=== PATIENT | female | born 1995 | race Caucasian/White ===

== ENCOUNTER 2016-12-09 16:44 | Emergency (ER) | payer MEDICAID ==
[~2016-12-09] VITALS: Ht 157.5 cm; Wt 65.8 kg
[~2016-12-09 16:44] MED LIST: FERR-74 PO; FOLI0.4T2 PO; HYDR-3812 PO; IBUP-1773 PO; PREN-53 PO
--- OUTSIDE RECORDS SUMMARY | 2016-12-09 16:51 | XMS REPORT ---
Author Author MARCELLO CORTES eClinicalWorks Address Unknown Phone Unavailable Care Team Providers Care Gluer Machine Setup Operator Name Role Phone MARCELLO CORTES CP Unavailable Allergies No Known Allergies Problems Problem Type Condition ICD-9 Code Onset Dates Condition Status Problem Depressive disorder, not elsewhere classified 311 Active Problem Supervision of normal first V22.0 Active Problem examination or test, positive result V72.42 Active Problem Epilepsy affecting 649.40 Active Assessment Supervision of normal first V22.0 Active Problem Screening examination for venereal disease V74.5 Active Problem Epilepsy 345.90 Active Medications No Known Medications Procedures Procedure Coding System Code Date Office Visit, Est Pt., Level 2 CPT-4 77981 Dec 24, 2014 URINE-NO MICRO CPT-4 02881 Dec 24, 2014 Vital Signs Date/Time: Dec 24, 2014 Temperature 98.9 F Weight 157.0 lbs Height 63 in BMI 27.811 Index Blood Pressure Diastolic 64 mmHg Blood Pressure Systolic 116 mmHg Cardiac Monitoring Heart Rate 84 bpm BMIPercentile 89.2 % Wt Percentile 85.32 % Results Name Result Date Reference Range Unit Abnormality Flag UA OB DIP (IN HOUSE) Summary Purpose eClinicalWorks Submission
--- OUTSIDE RECORDS SUMMARY | 2016-12-09 16:51 | XMS REPORT ---
Author Author MARCELLO CORTES [employer]Clinical[employer] Address Unknown Phone Unavailable Care Team Providers Care Translator Interpreter Name Role Phone MARCELLO CORTES CP Unavailable Allergies No Known Allergies Problems Problem Type Condition Code Onset Dates Condition Status Problem Encounter for supervision of normal first , third trimester Z34.03 Active Problem Depressive disorder, not elsewhere classified 311 Active Problem Epilepsy, unspecified, not intractable, without status epilepticus G40.909 Active Assessment Encounter for supervision of normal first , third trimester Z34.03 Active Assessment 39 weeks gestation of Z3A.39 Active Medications No Known Medications Procedures Procedure Coding System Code Date Office Visit, Est Pt., Level 2 CPT-4 42219 Feb 04, 2015 URINE-NO MICRO CPT-4 02955 Feb 04, 2015 Vital Signs Date/Time: Feb 04, 2015 Temperature 97.0 F Weight 164.9 lbs Height 63 in BMI 29.211 Index Blood Pressure Diastolic 78 mmHg Blood Pressure Systolic 122 mmHg Cardiac Monitoring Heart Rate 84 bpm BMIPercentile 91.87 % Wt Percentile 89.46 % Results Name Result Date Reference Range Unit Abnormality Flag UA OB DIP (IN HOUSE) Summary Purpose eClinicalWorks Submission
--- OUTSIDE RECORDS SUMMARY | 2016-12-09 16:51 | XMS REPORT ---
Author Author MARCELLO CORTES [facility] eClinicalWorks Address Unknown Phone Unavailable Care Team Providers Care Baggage Security Checker Name Role Phone MARCELLO CORTES Unavailable Allergies No Known Allergies Problems Problem Type Condition ICD-9 Code Onset Dates Condition Status Problem Depressive disorder, not elsewhere classified 311 Active Problem Supervision of normal first V22.0 Active Problem examination or test, positive result V72.42 Active Problem Epilepsy affecting 649.40 Active Assessment Supervision of normal first V22.0 Active Problem Screening examination for venereal disease V74.5 Active Problem Epilepsy 345.90 Active Medications Medication Code System Code Instructions Start Date End Date Status Dosage Folic Acid [facility] [address]-20 1 mg Jun 20, 2014 1 tablet by Oral route 1 time per day Procedures Procedure Coding System Code Date DETECT AGNT MULT, DNA, AMPLI CPT-4 14267 Jan 16, 2015 Office Visit, Est Pt., Level 2 CPT-4 49241 Jan 16, 2015 URINE-NO MICRO CPT-4 02108 Jan 16, 2015 Vital Signs Date/Time: Jan 16, 2015 Temperature 98.4 F Weight 159.3 lbs Height 63 in BMI 28.219 Index Blood Pressure Diastolic 70 mmHg Blood Pressure Systolic 116 mmHg Cardiac Monitoring Heart Rate 84 bpm BMIPercentile 90.06 % Wt Percentile 86.64 % Results No Known Results Summary Purpose eClinicalWorks Submission
--- OUTSIDE RECORDS SUMMARY | 2016-12-09 16:51 | XMS REPORT ---
Author Author MARCELLO CORTES [facility] eClinicalWorks Address Unknown Phone Unavailable Care Team Providers Care Truckman Name Role Phone MARCELLO CORTES CP Unavailable Allergies No Known Allergies Problems Problem Type Condition ICD-9 Code Onset Dates Condition Status Problem Depressive disorder, not elsewhere classified 311 Active Problem Supervision of normal first V22.0 Active Problem examination or test, positive result V72.42 Active Problem Epilepsy affecting 649.40 Active Problem Screening examination for venereal disease V74.5 Active Problem Epilepsy 345.90 Active Medications No Known Medications Results No Known Results Summary Purpose eClinicalWorks Submission
--- OUTSIDE RECORDS SUMMARY | 2016-12-09 16:51 | XMS REPORT ---
Author Author MARCELLO CORTES [facility] eClinicalWorks Address Unknown Phone Unavailable Care Team Providers Care Mica Layer Name Role Phone MARCELLO CORTES Unavailable Allergies No Known Allergies Problems Problem Type Condition Code Onset Dates Condition Status Problem Epilepsy, unspecified, not intractable, without status epilepticus G40.909 Active Medications Medication Code System Code Instructions Start Date End Date Status Dosage Aviane [facility] [address]-80 0.1-20 MG-MCG Orally Once a day Apr 17, 2015 1 tablet Results No Known Results Summary Purpose eClinicalWorks Submission
--- OUTSIDE RECORDS SUMMARY | 2016-12-09 16:51 | XMS REPORT ---
Author Author MARCELLO CORTES eClinicalWorks Address Unknown Phone Unavailable Care Team Providers Care Social Professionals Name Role Phone MARCELLO CORTES CP Unavailable [...] Office Visit, Est Pt., Level 2 CPT-4 55417 Jan 01, 2015 URINE-NO MICRO CPT-4 98980 Jan 01, 2015 Vital Signs Date/Time: Jan 01, 2015 Temperature 97.6 F Weight 156.8 lbs Height 63 in BMI 27.776 Index Blood Pressure Diastolic 68 mmHg Blood Pressure Systolic 108 mmHg Cardiac Monitoring Heart Rate 82 bpm BMIPercentile 89.11 % Wt Percentile 85.19 % Results Name Result Date Reference Range Unit Abnormality Flag UA OB DIP (IN HOUSE) Summary Purpose eClinicalWorks Submission
--- OUTSIDE RECORDS SUMMARY | 2016-12-09 16:52 | XMS REPORT ---
Author Author MARCELLO CORTES Organization eClinicalWorks Address Unknown Phone Unavailable Care Team Providers Care Head Of Conservation Name Role Phone MARCELLO CORTES CP Unavailable Allergies, Adverse Reactions, Alerts Substance Reaction Event Type Zithromax Info Not Available Drug Allergy Codeine Info Not Available Drug Allergy Problems Problem Type Condition Code Onset Dates Condition Status Assessment Routine follow-up Z39.2 Active Problem Epilepsy, unspecified, not intractable, without status epilepticus G40.909 Active Medications Medication Code System Code Instructions Start Date End Date Status Dosage [facility] [address]93 28-0.8 MG Orally not defined Ortho-Cyclen (28) [facility] [address]-72 0.25-35 MG-MCG Orally Once a day Mar 1 tablet Procedures Procedure Coding System Code Date Office Visit, Est Pt., Level 3 CPT-4 40522 Mar 20, 2015 URINE TEST CPT-4 85517 Mar 20, 2015 Vital Signs Date/Time: Mar 20, 2015 Temperature 99.2 F Weight 148.4 lbs Height 63 in BMI 26.29 Index Blood Pressure Diastolic 70 mmHg Blood Pressure Systolic 108 mmHg Cardiac Monitoring Heart Rate 76 bpm Results Name Result Date Reference Range Unit Abnormality Flag TEST, URINE (IN HOUSE) Summary Purpose eClinicalWorks Submission
[2016-12-09] MEDS ORDERED: BCP (17:16)
[2016-12-09 17:28] LABS: BILIRUBIN,URINE NEGATIVE (NEGATIVE); KETONES,URINE 1+ (NEGATIVE); LEUKOCYTE ESTERASE ,URINE 3+ (NEGATIVE); NITRITE,URINE NEGATIVE (NEGATIVE); PH,URINE 6 (5-9); PROTEIN,URINE 1+ (NEGATIVE); UROBILINOGEN,URINE NORMAL (NORMAL)
--- NOTE | 2016-12-09 17:30 | ED Abdominal Pain ---
General Chief Complaint: Abdominal/GI Problems Stated Complaint: ABD PAIN Nursing Triage Note: Pt c/o RLQ abd pain x4 days. Pt also c/o some nausea and vomiting. Pt was seen at [facility] yesterday adn was supposed to have an outpt pelvic ultrasound done but it did not get ordered. Sepsis Screen: No Definite Risk Source of Information: Patient Exam Limitations: No Limitations History of Present Illness Time Seen By Provider: 17:28 Initial Comments To ER with right-sided abdominal pain for 3 days. Pain radiates to her back. Become more midline in the past few hours. She does have some associated nausea and vomiting with chills. He reports that she has had a hysterectomy in the past. She denies any constipation or diarrhea or dysuria. Timing/Duration: 1-2 Days Severity/Quality: Moderate Location: RLQ, Suprapubic Radiation: No Radiation Activities at Onset: None Allergies and Home Medications Allergies Coded Allergies: codeine (Verified Allergy, Severe, ANAPHYLAXIS, PT HAS HAD HYDROCODONE, ) PER ZENA VANCE, PATIENT STATES THAT SHE HAS HAD LORTAB BEFORE WITHOUT ISSUE azithromycin (Verified Allergy, Unknown, RASH, 01/22/15) Home Medications Ondansetron 8 Mg Tab.rapdis, 8 MG PO Q6H PRN for NAUSEA/VOMITING-1ST LINE, #10 Prescribed by: DANNA TATE on 12/09/161739 Sulfamethoxazole/Trimethoprim 1 Each Tablet, 1 EACH PO BID, #14 Prescribed by: DANNA TATE on 12/09/161739 [Bcp] , (Reported) Review of Systems Constitutional: see HPI EENTM: No Symptoms Reported Respiratory: No Symptoms Reported Cardiovascular: No Symptoms Reported Gastrointestinal: See HPI, Abdominal Pain, Denies Constipated, Denies Diarrhea , Nausea, Vomiting Genitourinary: No Symptoms Reported Musculoskeletal: no symptoms reported Skin: no symptoms reported Psychiatric/Neurological: No Symptoms Reported Endocrine: No Symptoms Reported Past Rfrdcth-Dsvpwe-Tukitt Hx Patient Social History Alcohol Use: Occasionally Uses Recreational Drug Use: No Smoking Status: Never a Smoker Recent Foreign Travel: No Contact w/Someone Who Travel: No Recent Infectious Disease Expo: No Recent Hopitalizations: No Immunizations Up To Date Tetanus Booster (TDap): Unknown PED Vaccines UTD: Yes Date of Influenza Vaccine: Jan 29, 2015 Seasonal Allergies Seasonal Allergies: No Surgeries HX Surgeries: Yes Surgeries: Adenoidectomy, Appendectomy, Tonsillectomy Respiratory Hx Respiratory Disorders: No Cardiovascular Hx Cardiac Disorders: No Neurological Hx Neurological Disorders: Yes (Past seizure disorder) Reproductive System Hx Reproductive Disorders: No Genitourinary Hx Genitourinary Disorders: No Gastrointestinal Hx Gastrointestinal Disorders: No Musculoskeletal Hx Musculoskeletal Disorders: No Endocrine Hx Endocrine Disorders: No HEENT HX ENT Disorders: No Cancer Hx Cancer: No Psychosocial Hx Psychiatric Problems: No Integumentary HX Skin/Integumentary Disorder: No Blood Transfusions Hx Blood Disorders: No Adverse Reaction to a Blood Tr: No Family Medical History Family Medial History: FH: spina bifida Physical Exam Vital Signs VS - Last 72 Hours, by Label 12/09/16 17:12 Temp 98.4 Pulse 73 Resp 18 B/P (MAP) 103/76 Pulse Ox 97 O2 Delivery Room Air Capillary Refill : Less Than 3 Seconds General Appearance: WD/WN, no apparent distress HEENT: PERRL/EOMI, normal ENT inspection Neck: non-tender, full range of motion Respiratory: normal breath sounds, no respiratory distress, no accessory muscle use Cardiovascular: regular rate, rhythm, no murmur Gastrointestinal: normal bowel sounds, non tender, soft Extremities: normal range of motion, non-tender Neurologic/Psychiatric: alert, normal mood/affect, oriented x 3 Skin: normal color, warm/dry Progress/Results/Core Measures Results/Orders Lab Results Laboratory Tests Test 12/09/16 17:20 Range/Units Urine Color YELLOW Urine Clarity SLIGHTLY CLOUDY Urine pH 6 5-9 Urine Specific [place] 1.020 1.016-1.022 Urine Protein 1+ H NEGATIVE Urine Glucose (UA) NEGATIVE NEGATIVE Urine Ketones 1+ H NEGATIVE Urine Nitrite NEGATIVE NEGATIVE Urine Bilirubin NEGATIVE NEGATIVE Urine Urobilinogen NORMAL NORMAL MG/DL Urine Leukocyte Esterase 3+ H NEGATIVE Urine RBC (Auto) NEGATIVE NEGATIVE Urine RBC NONE /HPF Urine WBC 50-100 H /HPF Urine Squamous Epithelial Cells >50 H /HPF Urine Crystals NONE /LPF Urine Bacteria MODERATE H /HPF Urine Casts NONE /LPF Urine Mucus NEGATIVE /LPF Urine Culture Indicated YES My Orders Orders - DANNA TATE APRN Sulfamethoxazole/Trimet Ds Tab (Bactrim (12/09/16 17:45) Ondansetron Oral Dissolve Tab (Zofran (12/09/16 17:45) Vital Signs/I&O Vital Sign - Last 12Hours 12/09/16 17:12 Temp 98.4 Pulse 73 Resp 18 B/P (MAP) 103/76 Pulse Ox 97 O2 Delivery Room Air Blood Pressure Mean: 85 Departure Impression Impression: Primary Impression: Urinary tract infection Disposition: 01 HOME, SELF-CARE Condition: Stable Departure-Patient Inst. Decision time for Depature: 17:39 Referrals: MARCELLO CORTES MD (PCP/Family) Primary Care Physician Patient Instructions: Urinary Tract Infection, Adult (DC) Add. Discharge Instructions: 1. Drink plenty of fluids 2. Antibiotics as directed 3. All discharge instructions reviewed with patient and/or family. Voiced understanding. Scripts Ondansetron (Zofran Odt) 8 Mg Tab.rapdis 8 MG PO Q6H Y for NAUSEA/VOMITING-1ST LINE, #10 TAB Prov: DANNA TATE APRN 12/09/16 Sulfamethoxazole/Trimethoprim (Bactrim Ds Tablet) 1 Each Tablet 1 EACH PO BID, #14 TAB Prov: DANNA TATE APRN 12/09/16 DANNA TATE APRN Dec 09, 2016 17:30
[2016-12-09 17:36] LABS: SQUAMOUS EPITHELIAL CELL,UR >50 /HPF; WBC,URINE 50-100 /HPF
[2016-12-09] MEDS ORDERED: ONDA8TAB9 PO (17:40)
[2016-12-09] MEDS ORDERED: SULF1TAB35 PO (17:40)
[2016-12-09] MEDS ORDERED: TRIM/SULFAMETH 160/800 (SEPTRA DS) TAB PO ONE (17:45)
[2016-12-09] MEDS ORDERED: ONDANSETRON 4 MG (ZOFRAN) ORAL DISSOLVE TAB PO ONE (17:45)
[2016-12-09 17:46] VITALS: BP 103/76
== END 2016-12-09 17:46 | disposition home or self-care (01) ==
LOC: EDUNIT# 16:44 → ER 16:48
DX: N39.0 Urinary tract infection, site not specified (principal); R11.2 Nausea with vomiting, unspecified
CPT/HCPCS: 81000; 87088; 99283

== ENCOUNTER → 2017-05-06 | Outpatient (CLI) | payer MEDICAID ==
[~2017-05-06] MED LIST changes: +ACHD5005 PO; +BCP; -HYDR-3812 PO; +ONDA8TAB9 PO; +SULF1TAB35 PO
[2017-05-06 08:20] LABS: CLARITY,URINE CLEAR; COLOR,URINE YELLOW; PH,URINE 5 (5-9)
[2017-05-06 08:21] LABS: BACTERIA,URINE LARGE /HPF; BILIRUBIN,URINE NEGATIVE (NEGATIVE); GLUCOSE, URINE (UA) NEGATIVE (NEGATIVE); KETONES,URINE NEGATIVE (NEGATIVE); LEUKOCYTE ESTERASE ,URINE 1+ (NEGATIVE); NITRITE,URINE NEGATIVE (NEGATIVE); PROTEIN,URINE NEGATIVE (NEGATIVE); UROBILINOGEN,URINE NORMAL (NORMAL)
== END ==
LOC: LABNPT 08:13
PROVIDERS: ATTEND Nurse Practitioner Family
DX: R30.0 Dysuria (principal); N89.8 Other specified noninflammatory disorders of vagina
CPT/HCPCS: 81000; 87088; 87491; 87591

== ENCOUNTER 2017-05-15 13:04 | Emergency (ER) | payer MEDICAID ==
[~2017-05-15] VITALS: Ht 160 cm; Wt 67.1 kg
[~2017-05-15 13:04] MED LIST changes: -FERR-74 PO; +FERR325T18 PO
--- OUTSIDE RECORDS SUMMARY | 2017-05-15 13:11 | XMS REPORT | Continuity of Care Document ---
Author Author [employer] [facility] Address Unknown Phone Unavailable Care Team Providers Care Machine Pan Greaser Name Role Phone [employer] Unavailable Unavailable Problems Medications Medication Details Route Status Patient Instructions Ordering Provider Order Date Source Lutera oral tablet 1 tablet, PO, qDay, # 28 tablet, Refill(s) 0 Active [facility] magnesium gluconate 500 mg (27 mg elemental magnesium) oral tablet 27 mg=1 tablet, PO, qDay, 500 mg/1 tablet=27 mg elemental magnesium, # 30 tablet, Refill(s) 11, Pharmacy: [facility] 500 mg/1 tablet=27 mg elemental magnesium Active [facility] Topamax 100 mg oral tablet 100 mg=1 tablet, PO, BID, # 60 tablet, Refill(s) 11, Pharmacy: [facility]. Active [facility] midazolam 2 mg/mL oral syrup 6 mL prn for prolonged seizure, PO, 1 time only, 6 ml between cheek and teeth to terminate a prolonged seizure or a cluster of seizures, # 24 mL, Refill(s) 1, called to pharmacy (Rx) 6 ml between cheek and teeth to terminate a prolonged seizure or a cluster of seizures Active [facility] Compazine 5 mg oral tablet 5 mg, PO, TID, PRN Headache , please call for appointment, # 15 tablet, Refill(s) 5, Pharmacy: [facility]. please call for appointment Active [facility] Prevacid 30 mg oral delayed release capsule 30 mg=1 capsule, PO, qDay, # 30 capsule, Refill(s) 0 Active [facility] Allergies, Adverse Reactions, Alerts Substance Category Reaction Severity Reaction type Status Date Reported Comments Source azithromycin drug allergy Unknown Allergy Active 05/02/2012 [facility] codeine drug allergy Unknown Allergy Active 12/11/2012 [facility] Immunizations Results Vital Signs Vital Sign Value Date Comments Source Heart Rate 70 bpm 03/27/2013 [facility] Diastolic Blood Pressure Cuff Monitored 74 mm[Hg] 03/27/2013 [facility] Systolic Blood Pressure Cuff Monitored 106 mm[Hg] 03/27/2013 [facility] Encounters Location Location Details Encounter Type Encounter Number Reason For Visit Attending Provider ADM Date DC Date Status Source [facility] CLI [id number] f/u headache Franco Brandon 03/27/2013 03/27/2013 Active [facility] Procedures Plan of Care Social History Assessment and Plan Family History Advance Directives Functional Status
--- OUTSIDE RECORDS SUMMARY | 2017-05-15 13:11 | XMS REPORT | CCD ---
Author Author Auto Generated Organization [facility] Address Unknown Phone Unavailable Care Team Providers Care Synchro Assembler Name Role Phone Franco Taylor Cristopher CP [phone] Vivian Stevenson PP [phone] Allergies, Adverse Reactions, Alerts Substance Reaction Status azithromycin Active codeine Active Medications Medication Instructions Start Date End Date Status Lutera oral tablet 1 tablet, PO, qDay, # 28 tablet, 03/27/2013 Ordered Refill(s) 0 magnesium gluconate 27 mg=1 tablet, PO, qDay, 500 mg/1 03/27/2013 Ordered 500 mg (27 mg tablet=27 mg elemental magnesium, # elemental magnesium) 30 tablet, Refill(s) 11, Pharmacy: oral tablet [facility] 500 mg/1 tablet=27 mg elemental magnesium Topamax 100 mg oral 100 mg=1 tablet, PO, BID, # 60 03/27/2013 Ordered tablet tablet, Refill(s) 11, Pharmacy: [facility] midazolam 2 mg/mL 6 mL prn for prolonged seizure, 12/16/2011 Ordered oral syrup PO, 1 time only, 6 ml between cheek and teeth to terminate a prolonged seizure or a cluster of seizures, # 24 mL, Refill(s) 1, called to pharmacy (Rx) 6 ml between cheek and teeth to terminate a prolonged seizure or a cluster of seizures Topamax 100 mg oral 100 mg=1 tablet, PO, TID, # 90 04/05/2012 Ordered tablet tablet, Refill(s) 11, Pharmacy: [facility] Compazine 5 mg oral 5 mg, PO, TID, PRN Headache, please 10/24/2012 Ordered tablet call for appointment, # 15 tablet, Refill(s) 5, Pharmacy: [facility] please call for appointment Prevacid 30 mg oral 30 mg=1 capsule, PO, qDay, # 30 03/27/2013 Ordered delayed release capsule, Refill(s) 0 capsule Vital Signs Most recent to oldest [Reference Range]: 1 Heart Rate [45-120 bpm] 70 bpm (03/27/2013 10:52:00) Systolic Blood Pressure Cuff Monitored [90-140 mmHg] 106 mmHg (03/27/2013 10:52:00) Diastolic Blood Pressure Cuff Monitored [45-90 mmHg] 74 mmHg (03/27/2013 10:52:00)
--- OUTSIDE RECORDS SUMMARY | 2017-05-15 13:12 | XMS REPORT | Continuity of Care Document ---
Author Author [facility] Address Unknown Phone Unavailable Allergies Active Description Code Type Severity Reaction Onset Reported/Identified Relationship to Patient Clinical Status Yes Codeine Drug Allergy N/A N/A 11/02/2011 Yes Zithromax Drug Allergy N/A N/A 11/02/2011 Yes Codeine Drug Allergy 11/02/2011 Yes Zithromax Drug Allergy 11/02/2011 Yes azithromycin [id number] Drug Allergy Unknown RASH 01/22/2015 Yes codeine [id number] Drug Allergy Unknown ANAPHYLAXIS 01/22/2015 Yes codeine [id number] Drug Allergy Severe ANAPHYLAXIS 02/07/2015 Yes codeine [id number] Drug Allergy Severe ANAPHYLAXIS, PT 02/07/2015 Medications There is no data. Problems Date Dx Coded Attending Type Code Diagnosis Diagnosed By 11/02/2011 JOSÉ LEE APRN 311 DEPRESSIVE DISORDER NOS 11/02/2011 311 DEPRESSIVE DISORDER NOS 11/02/2011 MICHELLE SAWYER APRN 311 DEPRESSIVE DISORDER NOS 11/02/2011 MARCELLO CORTES MD 311 DEPRESSIVE DISORDER NOS 06/03/2014 MICHELLE SAWYER APRN V72.42 TEST POSITIVE RESULT 06/03/2014 MARCELLO CORTES MD V72.42 TEST POSITIVE RESULT 06/20/2014 MICHELLE SAWYER APRN V04.81 FLU SHOT 06/20/2014 MICHELLE SAWYER APRN V22.0 , NORMAL FIRST 06/20/2014 MARCELLO CORTES MD V04.81 FLU SHOT 06/20/2014 MARCELLO CORTES MD V22.0 , NORMAL FIRST 06/26/2014 Ot 780.39 06/27/2014 Ot 780.39 07/22/2014 MICHELLE SAWYER APRN V74.5 STD SCREEN 07/22/2014 MARCELLO CORTES MD V74.5 STD SCREEN 08/01/2014 Ot 780.39 08/01/2014 Ot V22.0 08/01/2014 Ot 780.39 08/01/2014 Ot V22.0 08/13/2014 Ot V22.0 10/03/2014 Ot 780.39 10/03/2014 Ot V22.0 10/10/2014 Ot 780.39 10/10/2014 Ot V22.0 10/25/2014 MARCELLO CORTES MD Ot V22.0 01/22/2015 HUSAM DIANA DO Raffi Ot 646.83 PREG COMPL NEC-ANTEPART 01/22/2015 HUSAM DIANA DO Ot 789.00 ABDOMINAL PAIN, UNSPECIFIED SITE 01/24/2015 MARCELLO CORTES MD Ot V22.0 02/06/2015 Ot 780.39 02/06/2015 Ot V22.0 02/06/2015 MARCELLO CORTES MD Ot V22.0 02/06/2015 MARCELLO CORTES MD Ot O47.1 FALSE LABOR AT OR AFTER 37 COMPLETED WEE 02/06/2015 MARCELLO CORTES MD Ot Z3A.00 WEEKS OF GESTATION OF NOT SPEC 02/07/2015 Ot 780.39 02/07/2015 Ot V22.0 02/07/2015 MARCELLO CORTES MD Ot V22.0 02/08/2015 MARCELLO CORTES MD Ot O80 ENCOUNTER FOR FULL-TERM UNCOMPLICATED DE 02/08/2015 MARCELLO CORTES MD Ot Z23 ENCOUNTER FOR IMMUNIZATION 02/08/2015 MARCELLO CORTES MD Ot Z37.0 SINGLE LIVE 02/08/2015 MARCELLO CORTES MD Ot Z3A.39 39 WEEKS GESTATION OF 02/11/2015 Ot 780.39 02/11/2015 Ot V22.0 02/11/2015 MARCELLO CORTES MD Ot V22.0 12/09/2016 Ot V22.0 SUPERVIS NORMAL 1ST PREG 12/09/2016 MARCELLO CORTES MD Ot V22.0 SUPERVIS NORMAL 1ST PREG 12/09/2016 DANNA TATE APRN Ot N39.0 URINARY TRACT INFECTION, SITE NOT SPECIF 12/09/2016 DANNA TATE APRN Ot R10.31 RIGHT LOWER QUADRANT PAIN 12/09/2016 TATE, PETER J CHIP PERSON Ot R11.2 NAUSEA WITH VOMITING, UNSPECIFIED 05/10/2017 JEFFPEGGY LISA MCKENNA Ot N89.8 OTHER SPECIFIED NONINFLAMMATORY DISORDER 05/10/2017 LISA DE JESUS Ot R30.0 DYSURIA Procedures Code [place] [address] PSYCH IND W/MED CK 20 02/16/2012 59893 ROUTINE VENIPUNCTURE 07/22/2014 77899 SYPHILLIS-STATE [facility] 07/22/2014 76038 HIV (STATE LAB) 07/22/2014 81804 ANTIBODY SCREEN (order) 07/22/2014 77997 HEP B SURFACE ANTIGEN (STATE ) 07/22/2014 51417 GC/CHLAM PROBE (STATE) 07/22/2014 49850 UA OB DIP 07/22/2014 00744 TRICHOMONAS (IN-HOUSE) 07/22/2014 71626 CBC 07/22/2014 28557 TSH 07/22/2014 0217580 ANTIBODY SCREEN (RESULT ONLY) 07/23/2014 55614 BLOOD TYPE/Rh FACTOR 07/23/2014 24534 RUBELLA ANTIBODY, IGG 07/23/2014 77590 CULTURE URINE 07/23/2014 64970 CULTURE UROGENITAL 07/25/2014 36751 UA OB DIP 08/14/2014 [id number] DELIVERY OF PRODUCTS OF CONCEPTION, EXTE 02/07/2015 Results Test Result Range Complete urinalysis with reflex to culture - 12/09/16 17:20 Urine color determination YELLOW NRG Urine clarity determination SLIGHTLY CLOUDY NRG Urine pH measurement by test strip 6 5-9 Specific gravity of urine by test strip 1.020 1.016- 1.022 Urine protein assay by test strip, semi-quantitative 1+ NEGATIVE Urine glucose detection by automated test strip NEGATIVE NEGATIVE Erythrocytes detection in urine sediment by light microscopy NEGATIVE NEGATIVE Urine ketones detection by automated test strip 1+ NEGATIVE Urine nitrite detection by test strip NEGATIVE NEGATIVE Urine total bilirubin detection by test strip NEGATIVE NEGATIVE Urine urobilinogen measurement by automated test strip (mass/volume) NORMAL NORMAL Urine leukocyte esterase detection by dipstick 3+ NEGATIVE Automated urine sediment erythrocyte count by microscopy (number/high power field) NONE NRG Automated urine sediment leukocyte count by microscopy (number/high power field ) [HPF] NRG Bacteria detection in urine sediment by light microscopy MODERATE NRG Squamous epithelial cells detection in urine sediment by light microscopy >50 NRG Crystals detection in urine sediment by light microscopy NONE NRG Casts detection in urine sediment by light microscopy NONE NRG Mucus detection in urine sediment by light microscopy NEGATIVE NRG Complete urinalysis with reflex to culture YES NRG Bacterial urine culture - 12/09/16 17:20 URINE CULTURE RESULTS <10,000/ML NRG Complete urinalysis with reflex to culture - 05/05/17 19:43 Urine color determination YELLOW NRG Urine clarity determination CLEAR NRG Urine pH measurement by test strip 5 5-9 Specific gravity of urine by test strip 1.025 1.016- 1.022 Urine protein assay by test strip, semi-quantitative NEGATIVE NEGATIVE Urine glucose detection by automated test strip NEGATIVE NEGATIVE Erythrocytes detection in urine sediment by light microscopy NEGATIVE NEGATIVE Urine ketones detection by automated test strip NEGATIVE NEGATIVE Urine nitrite detection by test strip NEGATIVE NEGATIVE Urine total bilirubin detection by test strip NEGATIVE NEGATIVE Urine urobilinogen measurement by automated test strip (mass/volume) NORMAL NORMAL Urine leukocyte esterase detection by dipstick 1+ NEGATIVE Automated urine sediment erythrocyte count by microscopy (number/high power field) NONE NRG Automated urine sediment leukocyte count by microscopy (number/high power field ) [HPF] NRG Bacteria detection in urine sediment by light microscopy LARGE NRG Squamous epithelial cells detection in urine sediment by light microscopy 10-25 NRG Crystals detection in urine sediment by light microscopy NONE NRG Casts detection in urine sediment by light microscopy NONE NRG Mucus detection in urine sediment by light microscopy NEGATIVE NRG Complete urinalysis with reflex to culture YES NRG Bacterial urine culture - 05/05/17 19:43 URINE CULTURE RESULTS <10,000/ML NRG Chlamydia DNA amp probe, urine - 05/05/17 19:43 Chlamydia DNA amp probe, urine Not Detected Not Detected Urine Neisseria gonorrhoeae DNA assay - 05/05/17 19:43 Gonorrhea amp DNA-urine Not Detected Not Detected Encounters ACCT No. Visit Date/Time Discharge Status Pt. Type Provider Facility Loc./Unit Complaint [id number] 08/14/2014 14:21:00 08/14/2014 23:59:59 CLS Outpatient MARCELLO CORTES MD [id number] 07/22/2014 13:46:00 07/22/2014 23:59:59 CLS Outpatient MICHELLE SAWYER APRN [id number] 07/04/2012 15:54:00 07/04/2012 23:59:59 CLS Outpatient [id number] 02/16/2012 16:34:00 02/16/2012 23:59:59 CLS Outpatient JOSÉ LEE APRN [id number] 05/06/2017 08:13:00 05/06/2017 23:59:59 CLS Outpatient LISA DE JESUS DRAWING SUPERVISOR-C [facility] LABNPT [id number] 12/09/2016 16:48:00 12/09/2016 17:46:00 DIS Emergency TATEDANNA APRN [facility] ER ABD PAIN [id number] 02/06/2015 00:28:00 02/06/2015 03:20:00 DIS Outpatient MARCELLO CORTES MD [facility] CTXS,FLUID LEAKAGE [id number] 01/22/2015 17:19:00 01/22/2015 19:10:00 DIS Outpatient HUSAM DIANA DO [facility] C/O ABD PAIN [id number] 10/10/2014 14:06:00 10/10/2014 23:59:59 CLS Outpatient MARCELLO CORTES MD [facility] RAD DATING [id number] 05/15/2017 13:07:00 ACT Emergency FATMATA SZYMANSKI MD [facility] ER UTI/ABD PAIN/FEVER [id number] 02/06/2015 08:25:00 ACT Inpatient MARCELLO CORTES MD [facility] LDRP LABOR [id number] 02/06/2015 00:27:00 Document Registration [id number] 06/27/2014 10:12:00 Document Registration [id number] 03/01/2011 12:27:00 Document Registration
[2017-05-15] MEDS ORDERED: METR500T21 (15:10)
[2017-05-15 15:29] LABS: BILIRUBIN,URINE NEGATIVE (NEGATIVE); CLARITY,URINE SLIGHTLY CLOUDY; COLOR,URINE YELLOW; GLUCOSE, URINE (UA) NEGATIVE (NEGATIVE); KETONES,URINE NEGATIVE (NEGATIVE); LEUKOCYTE ESTERASE ,URINE 3+ (NEGATIVE); NITRITE,URINE NEGATIVE (NEGATIVE); PH,URINE 6 (5-9); PROTEIN,URINE NEGATIVE (NEGATIVE); UROBILINOGEN,URINE NORMAL (NORMAL)
[2017-05-15 15:42] LABS: BASOPHILS % (AUTO) 1 % (0-10); EOSINOPHILS % (AUTO) 1 % (0-10); HEMATOCRIT 41 % (35-52); HEMOGLOBIN 14.3 G/DL (11.5-16.0); LYMPHOCYTES # (AUTO) 1.6 X 10^3 (1.0-4.0); LYMPHOCYTES % (AUTO) 30 % (12-44); MEAN CORPUSCULAR HEMOGLOBIN 31 PG (25-34); MEAN CORPUSCULAR HGB CONC 35 G/DL (32-36); MEAN CORPUSCULAR VOLUME 87 FL (80-99); MEAN PLATELET VOLUME 10.6 FL (7.4-10.4); MONOCYTES # (AUTO) 0.4 X 10^3 (0.0-1.0); MONOCYTES % (AUTO) 7 % (0-12); NEUTROPHILS # (AUTO) 3.4 X 10^3 (1.8-7.8); NEUTROPHILS % (AUTO) 62 % (42-75); PLATELET COUNT 257 10^3/uL (130-400); RED BLOOD COUNT 4.66 10^6/uL (4.35-5.85); RED CELL DISTRIBUTION WIDTH 12.3 % (10.0-14.5); WHITE BLOOD COUNT 5.5 10^3/uL (4.3-11.0)
[2017-05-15 15:43] LABS: BACTERIA,URINE MODERATE /HPF
[2017-05-15 16:04] LABS: ALANINE AMINOTRANSFERASE 25 U/L (0-55); ALBUMIN 4.3 GM/DL (3.2-4.5); ALKALINE PHOSPHATASE 49 U/L (40-136); BILIRUBIN,TOTAL 0.3 MG/DL (0.1-1.0); BUN/CREATININE RATIO 15; CALCIUM 9.2 MG/DL (8.5-10.1); CARBON DIOXIDE 23 MMOL/L (21-32); CHLORIDE 105 MMOL/L (98-107); CREATININE SERUM 0.84 MG/DL (0.60-1.30); GFR ESTIMATED > 60; GLUCOSE 83 MG/DL (70-105); LIPASE 34 U/L (8-78); POTASSIUM 3.6 MMOL/L (3.6-5.0); SODIUM 139 MMOL/L (135-145); TOTAL PROTEIN 7.2 GM/DL (6.4-8.2)
--- NOTE | 2017-05-15 16:42 | ED GU-Female ---
General Chief Complaint: Abdominal/GI Problems Stated Complaint: UTI/ABD PAIN/FEVER Nursing Triage Note: PT HERE WITH C/O ABDOMINAL PAIN. PT WAS TREATED WITH A UTI ON 04/20/17 AND HAS HAD PAIN AND FEVER ON AND OFF SINCE THIS TIME. Nursing Sepsis Screen: No Definite Risk Source: patient Exam Limitations: no limitations History of Present Illness Time seen by provider: 16:42 Initial Comments 22-year-old female patient presents to the emergency department with complaints of generalized abdominal pain beginning yesterday. Reports having a urinary tract infection since 04/20/17. Reports being treated once by [facility] and once by [facility]. She did feel better for a few days after each round of antibiotics. Now complains of intermittent fevers, pain, nausea, vomiting, and frequency. Timing/Duration: yesterday, getting worse Severity/Quality: aching, cramping Location: other (generalized abdomen) Radiation: none Activities at Onset: none Prior Genitourinary Problems: similar symptoms Sexual [place] History: less than 2 months ago, single partner Modifying Factors: Worsens With Eating, Worsens With Movement, Worsens With Palpation, Worsens With Urinating Allergies and Home Medications Allergies Coded Allergies: codeine (Verified Allergy, Severe, ANAPHYLAXIS, PT HAS HAD HYDROCODONE, ) PER ZENA VANCE, PATIENT STATES THAT SHE HAS HAD LORTAB BEFORE WITHOUT ISSUE azithromycin (Verified Allergy, Unknown, RASH, 01/22/15) ceftriaxone (Verified Allergy, Unknown, 05/15/17) Home Medications Metronidazole 500 Mg Tablet, (Reported) Nitrofurantoin Monohyd/M-Cryst 100 Mg Capsule, 1 TAB PO BID, #14 Ref 0 Prescribed by: JACQUELINE GARCIA on 05/15/171821 Ondansetron 8 Mg Tab.rapdis, 8 MG PO Q6H PRN for NAUSEA/VOMITING-1ST LINE, #10 Ref 0 Prescribed by: JACQUELINE GARCIA on 05/15/171821 Phenazopyridine HCl 200 Mg Tablet, 1 TAB PO Q8H PRN for PAIN-MODERATE TO SEVERE , #14 Ref 0 Prescribed by: JACQUELINE GARCIA on 05/15/171821 Constitutional: fever, malaise EENTM: no symptoms reported Respiratory: No cough, No phlegm, No short of breath Cardiovascular: No chest pain, No edema, No palpitations, No syncope Gastrointestinal: see HPI, abdominal pain, No constipation, No diarrhea, No hematemesis, loss of appetite, No melena, nausea, vomiting Genitourinary: see HPI, denies burning, denies discharge, denies dysuria, frequency, denies flank pain, denies hematuria : No Musculoskeletal: no symptoms reported Skin: no symptoms reported Psychiatric/Neurological: No Symptoms Reported All Other Systemes Reviewed Negative Unless Noted: Yes (Negative excepted noted.) Past Iqqcaih-Qrhnzh-Hamgge Hx Patient Social History Recent Foreign Travel: No Contact w/Someone Who Travel: No Recent Infectious Disease Expo: No Recent Hopitalizations: No Immunizations Up To Date Tetanus Booster (TDap): Unknown PED Vaccines UTD: Yes Date of Influenza Vaccine: Jan 29, 2015 Seasonal Allergies Seasonal Allergies: No Surgeries History of Surgeries: Yes Surgeries: Adenoidectomy, Appendectomy, Tonsillectomy Respiratory History of Respiratory Disorde: No Cardiovascular History of Cardiac Disorders: No Neurological History of Neurological Disord: Yes (Past seizure disorder) Reproductive System Last Menstrual Period: Apr 25, 2017 Hx Reproductive Disorders: No Genitourinary History of Genitourinary Disor: No Gastrointestinal History of Gastrointestinal Di: No Musculoskeletal History of Musculoskeletal Dis: No Endocrine History of Endocrine Disorders: No HEENT History of HEENT Disorders: No Cancer History of Cancer: No Psychosocial History of Psychiatric Problem: No Integumentary History of Skin or Integumenta: No Blood Transfusions History of Blood Disorders: No Adverse Reaction to a Blood Tr: No Reviewed Nursing Assessment Reviewed/Agree w Nursing PMH: Yes Family Medical History Significant Family History: No Pertinent Family Hx Family Medial History: FH: spina bifida Physical Exam Vital Signs Vital Sign - Last 12Hours 05/15/17 14:30 Temp 98.8 Pulse 77 Resp 18 B/P (MAP) 112/72 (85) Pulse Ox 98 O2 Delivery Room Air Capillary Refill : Less Than 3 Seconds General Appearance: WD/WN, no apparent distress HEENT: PERRL/EOMI, pharynx normal Neck: supple, normal inspection Cardiovascular: normal peripheral pulses, regular rate, rhythm, no edema, no murmur Respiratory: lungs clear, normal breath sounds, no respiratory distress, no accessory muscle use Gastrointestinal: normal bowel sounds, soft, no organomegaly, No distended, guarding (suprapubic), No rebound, tenderness (generalized tenderness), No mass Back: normal inspection, no CVA tenderness Neurologic/Psychiatric: alert, normal mood/affect, oriented x 3 Skin: normal color, warm/dry Progress/Results/Core Measures Suspected Sepsis Recent Fever Within 48 Hours: Yes Infection Criteria Present: None New/Unexplained Altered Menta: No Sepsis Screen: No Definite Risk Sepsis Diagnosis: SIRS Temperature:98.8 Pulse: 77 Respiratory Rate: 18 Laboratory Tests 05/15/17 15:30: White Blood Count 5.5 Blood Pressure 112 /72 Mean: 85 Laboratory Tests 05/15/17 15:30: Creatinine 0.84, Platelet Count 257, Total Bilirubin 0.3 Results/Orders Lab Results Laboratory Tests Test 05/15/17 15:00 05/15/17 15:30 Range/Units Urine Color YELLOW Urine Clarity SLIGHTLY CLOUDY Urine pH 6 5-9 Urine Specific [place] 1.010 L 1.016-1.022 Urine Protein NEGATIVE NEGATIVE Urine Glucose (UA) NEGATIVE NEGATIVE Urine Ketones NEGATIVE NEGATIVE Urine Nitrite NEGATIVE NEGATIVE Urine Bilirubin NEGATIVE NEGATIVE Urine Urobilinogen NORMAL NORMAL MG/DL Urine Leukocyte Esterase 3+ H NEGATIVE Urine RBC (Auto) NEGATIVE NEGATIVE Urine RBC NONE /HPF Urine WBC 10-25 H /HPF Urine Squamous Epithelial Cells 5-10 /HPF Urine Crystals NONE /LPF Urine Bacteria MODERATE H /HPF Urine Casts NONE /LPF Urine Mucus NEGATIVE /LPF Urine Culture Indicated YES White Blood Count 5.5 4.3-11.0 10^3/uL Red Blood Count 4.66 4.35-5.85 10^6/uL Hemoglobin 14.3 11.5-16.0 G/DL Hematocrit 41 35-52 % Mean Corpuscular Volume 87 80-99 FL Mean Corpuscular Hemoglobin 31 25-34 PG Mean Corpuscular Hemoglobin Concent 35 32-36 G/DL Red Cell Distribution Width 12.3 10.0-14.5 % Platelet Count 257 130-400 10^3/uL Mean Platelet Volume 10.6 H 7.4-10.4 FL Neutrophils (%) (Auto) 62 42-75 % Lymphocytes (%) (Auto) 30 12-44 % Monocytes (%) (Auto) 7 0-12 % Eosinophils (%) (Auto) 1 0-10 % Basophils (%) (Auto) 1 0-10 % Neutrophils # (Auto) 3.4 1.8-7.8 X 10^3 Lymphocytes # (Auto) 1.6 1.0-4.0 X 10^3 Monocytes # (Auto) 0.4 0.0-1.0 X 10^3 Eosinophils # (Auto) 0.0 0.0-0.3 10^3/uL Basophils # (Auto) 0.0 0.0-0.1 10^3/uL Sodium Level 139 135-145 MMOL/L Potassium Level 3.6 3.6-5.0 MMOL/L Chloride Level 105 98-107 MMOL/L Carbon Dioxide Level 23 21-32 MMOL/L Anion Gap 11 5-14 MMOL/L Blood Urea Nitrogen 13 7-18 MG/DL Creatinine 0.84 0.60-1.30 MG/DL Estimat Glomerular Filtration Rate > 60 BUN/Creatinine Ratio 15 Glucose Level 83 70-105 MG/DL Calcium Level 9.2 8.5-10.1 MG/DL Total Bilirubin 0.3 0.1-1.0 MG/DL Aspartate Amino Transf (AST/SGOT) 27 5-34 U/L Alanine Aminotransferase (ALT/SGPT) 25 0-55 U/L Alkaline Phosphatase 49 40-136 U/L C-Reactive Protein High Sensitivity 0.82 H 0.00-0.50 MG/DL Total Protein 7.2 6.4-8.2 GM/DL Albumin 4.3 3.2-4.5 GM/DL Lipase 34 8-78 U/L My Orders Orders - JACQUELINE GARCIA Cbc With Automated Diff (05/15/17 15:23) Comprehensive Metabolic Panel (05/15/17 15:23) Hs C Reactive Protein (05/15/17 15:23) Lipase (05/15/17 15:23) Ua Culture If Indicated (05/15/17 15:23) Saline Lock/Iv-Start (05/15/17 15:23) Urine Bedside (05/15/17 15:23) Urine Culture (05/15/17 15:00) Ketorolac Injection (Toradol Injection) (05/15/17 16:58) Ondansetron Injection (Zofran Injectio (05/15/17 17:00) Ceftriaxone Injection (Rocephin Injectio (05/15/17 17:00) Ns Iv 1000 Ml (Sodium Chloride 0.9%) (05/15/17 16:58) Famotidine Injection (Pepcid Injection) (05/15/17 17:41) Diphenhydramine Injection (Benadryl Inje (05/15/17 17:41) Dexamethasone Pf Injection (Decadron Pf (05/15/17 17:41) Dexamethasone Injection (Decadron Inject (05/15/17 17:49) Rx-Nitrofurantoin [place] (Rx-Macrobid) (05/15/17 19:04) Rx-Ondansetron Po (Rx-Zofran Po) (05/15/17 19:04) Medications Given in ED Current Medications Medications Dose Ordered Sig/Dean Route Start Time Stop Time Status Last Admin Dose Admin Ceftriaxone Sodium 1000 mg/ Sodium Chloride 50 ml @ 100 mls/hr ONCE ONCE IV 05/15/17 17:00 05/15/17 17:29 DC 05/15/17 17:32 100 MLS/HR Dexamethasone Sodium Phosphate 10 mg ONCE ONCE IV 05/15/17 18:15 05/15/17 18:16 DC 05/15/17 18:06 10 MG Ondansetron HCl 4 mg ONCE ONCE IVP 05/15/17 17:00 05/15/17 17:01 DC 05/15/17 17:32 4 MG Sodium Chloride 1,000 ml @ 0 mls/hr Q0M ONCE IV 05/15/17 16:58 05/15/17 17:00 DC 05/15/17 17:32 1,000 MLS/HR Vital Signs/I&O Vital Sign - Last 12Hours 05/15/17 19:12 Temp 99.0 Pulse 79 Resp 18 Pulse Ox 98 Capillary Refill : Less Than 3 Seconds Blood Pressure Mean: 85 Point of Care Testing Urine -Bedside: Negative Departure Communication (Admissions) Progress Notes Laboratory findings discussed with the patient. Patient was given 1 L normal saline, Zofran 4 mg, Toradol 30 mg, and 1 g Rocephin. Patient was noted to have a pruritic rash began immediately after starting the Rocephin. Rocephin was immediately stopped and patient was given Pepcid 20 mg, Benadryl 25 mg, and Decadron 10 mg with improvement in the rash and itching. Plan for discharge to home with oral Macrobid. Patient to use [id number] Benadryl and Pepcid as needed for symptoms. Return precautions were discussed with the patient as described in the discharge instructions of this report. Patient verbalizes understanding and agrees with the treatment plan. Impression Impression: Primary Impression: Urinary tract infection Qualified Codes: N30.00 - Acute cystitis without hematuria Additional Impressions: Nausea and vomiting Qualified Codes: R11.14 - Bilious vomiting Drug allergy Disposition: HOME, SELF-CARE Condition: Improved Departure-Patient Inst. Decision time for Depature: 17:10 Referrals: RUDY PRINGLE MD (PCP/Family) Primary Care Physician Patient Instructions: Nausea and Vomiting, Adult (DC), Urinary Tract Infection , Adult (DC) Add. Discharge Instructions: All discharge instructions reviewed with patient and/or family. Voiced understanding. Medications as instructed. Tylenol extra strength over-the- counter as directed for pain or fever. Ibuprofen 800 mg by mouth every 8 hours as needed for pain or fever. Clear liquid diet until symptoms improve, then increase diet as tolerated to a strict low-fat, bland diet. Follow-up with your family practitioner for recheck as an outpatient, call first in Tuesday morning for appointment time. You may need referral to a urologist for cystoscopy or further diagnostic studies. Return to the emergency department for worsened pain, fever, vomiting, vomiting blood, rectal bleeding, black stools, visible blood in the urine, inability to urinate, or any other concerns. Scripts Ondansetron (Ondansetron Odt) 8 Mg Tab.rapdis 8 MG PO Q6H Y for NAUSEA/VOMITING-1ST LINE, #10 TAB 0 Refills Prov: JACQUELINE GARCIA 05/15/17 Phenazopyridine HCl (Pyridium) 200 Mg Tablet 1 TAB PO Q8H Y for PAIN-MODERATE TO SEVERE, #14 TAB 0 Refills Prov: JACQUELINE GARCIA 05/15/17 Nitrofurantoin Monohyd/M-Cryst (Macrobid 100 mg Capsule) 100 Mg Capsule 1 TAB PO BID, #14 CAP 0 Refills Prov: JACQUELINE GARCIA 05/15/17 JACQUELINE GARCIA May 15, 2017 16:42
[2017-05-15] MEDS ORDERED: NS IV 1000 ML 1,000 ML IV ONE (16:58)
[2017-05-15] MEDS ORDERED: KETOROLAC 30 MG/ML VIAL IVP STA (16:58)
[2017-05-15] MEDS ORDERED: ONDANSETRON 4 MG/2 ML (SDV) Z0FRAN IVP ONE (17:00)
[2017-05-15] MEDS ORDERED: cefTRIAXone INJECTION 1,000 MG in NS (IVPB) 50 ML IV ONE (17:00)
[2017-05-15] MEDS ORDERED: DEXAMETHASONE PF 10 MG/ML (DECADRON) VIAL IV STA (17:41)
[2017-05-15] MEDS ORDERED: diphenhydrAMINE 50 MG/ML INJ (BENADRYL) IV STA (17:41)
[2017-05-15] MEDS ORDERED: FAMOTIDINE 20MG/2ML IV (PEPCID) IV STA (17:41)
[2017-05-15] MEDS ORDERED: DEXAMETHASONE 10 MG/ML (DECADRON) 1 ML VIAL ONE (17:49)
[2017-05-15] MEDS ORDERED: DEXAMETHASONE 10 MG/ML (DECADRON) 1 ML VIAL IV ONE (18:15)
[2017-05-15] MEDS ORDERED: ONDA8TAB13 PO (18:22)
[2017-05-15] MEDS ORDERED: PHEN-640 PO (18:22)
[2017-05-15] MEDS ORDERED: NITR-65 PO (18:22)
[2017-05-15] MEDS ORDERED: RX-NITROFURANTOIN 100 MG (MACROBID) CAP PPK#2 PO STA (19:04)
[2017-05-15] MEDS ORDERED: RX-ONDANSETRON 4 MG ODT (ZOFRAN) PPK #4 PO STA (19:04)
[2017-05-15 19:12] VITALS: BP 108/57
== END 2017-05-15 18:56 | disposition home or self-care (01) ==
LOC: EDUNIT# 13:04 → ER 13:07
DX: N39.0 Urinary tract infection, site not specified (principal); T78.40XA Allergy, unspecified, initial encounter; G40.909 Epilepsy, unspecified, not intractable, without status epilepticus; Z90.49 Acquired absence of other specified parts of digestive tract; Z90.89 Acquired absence of other organs
CPT/HCPCS: 36415; 80053; 81000; 83690; 84703; 85025; 86141; 87088

== ENCOUNTER → 2017-06-28 | Outpatient (CLI) | payer MEDICAID ==
[~2017-06-28] MED LIST changes: +LEVO1TAB9 PO; +METR500T21; +NITR-65 PO; +ONDA8TAB13 PO; +OXYC-465 PO; +OXYC-471 PO; +PHEN-640 PO
[2017-06-28 17:49] LABS: BASOPHILS # (AUTO) 0.1 10^3/uL (0.0-0.1); BASOPHILS % (AUTO) 1 % (0-10); EOSINOPHILS # (AUTO) 0.4 10^3/uL (0.0-0.3); EOSINOPHILS % (AUTO) 6 % (0-10); HEMATOCRIT 39 % (35-52); HEMOGLOBIN 13.7 G/DL (11.5-16.0); LYMPHOCYTES # (AUTO) 2.2 X 10^3 (1.0-4.0); LYMPHOCYTES % (AUTO) 33 % (12-44); MEAN CORPUSCULAR HEMOGLOBIN 31 PG (25-34); MEAN CORPUSCULAR HGB CONC 35 G/DL (32-36); MEAN CORPUSCULAR VOLUME 88 FL (80-99); MONOCYTES # (AUTO) 0.5 X 10^3 (0.0-1.0); MONOCYTES % (AUTO) 7 % (0-12); NEUTROPHILS # (AUTO) 3.5 X 10^3 (1.8-7.8); NEUTROPHILS % (AUTO) 52 % (42-75); PLATELET COUNT 211 10^3/uL (130-400); RED BLOOD COUNT 4.46 10^6/uL (4.35-5.85); RED CELL DISTRIBUTION WIDTH 12.4 % (10.0-14.5); WHITE BLOOD COUNT 6.6 10^3/uL (4.3-11.0)
[2017-06-28 18:10] LABS: ALANINE AMINOTRANSFERASE 25 U/L (0-55); ALBUMIN 4.8 GM/DL (3.2-4.5); ALKALINE PHOSPHATASE 61 U/L (40-136); BILIRUBIN,TOTAL 0.3 MG/DL (0.1-1.0); BUN/CREATININE RATIO 15; CALCIUM 9.8 MG/DL (8.5-10.1); CARBON DIOXIDE 24 MMOL/L (21-32); CHLORIDE 105 MMOL/L (98-107); CREATININE SERUM 0.86 MG/DL (0.60-1.30); GFR ESTIMATED > 60; GLUCOSE 92 MG/DL (70-105); POTASSIUM 3.6 MMOL/L (3.6-5.0); SODIUM 140 MMOL/L (135-145); TOTAL PROTEIN 8.1 GM/DL (6.4-8.2)
[2017-06-28 18:14] LABS: AMYLASE 75 U/L (25-125); LIPASE 47 U/L (8-78)
--- NOTE | 2017-06-28 18:31 | Diagnostic Imaging Report ---
INDICATION: Right upper quadrant pain for two days. TIME OF EXAM: 06:18 p.m. FINDINGS: No free air is seen. Bowel gas pattern is nonobstructive. Moderate stool in the right colon is seen. No pathologic calcifications are identified. IMPRESSION: No acute feature is detected. Dictated by: Dictated on workstation # [id number]
--- NOTE | 2017-06-29 08:18 | Diagnostic Imaging Report ---
PROCEDURE: US Gallbladder. TECHNIQUE: Multiple real-time grayscale images were obtained over the right upper quadrant in various projections. INDICATION: Right upper quadrant pain COMPARISON: None FINDINGS: The liver appears unremarkable. No focal hepatic mass is seen. There is no biliary dilatation. Common bile duct measures about 3 mm. Doppler imaging demonstrates normal hepatopedal flow in the main portal vein. The gallbladder and pancreas appear unremarkable. The right kidney measures 9.4 cm in length and appears unremarkable. There is no ascites or sonographic Taylor's sign. IMPRESSION: No acute abnormalities demonstrated. Dictated by: Dictated on workstation # [id number]
== END ==
LOC: LAB 17:25
PROVIDERS: ATTEND Family Medicine
DX: R10.11 Right upper quadrant pain (principal)
CPT/HCPCS: 36415; 74019; 76705; 80053; 82150; 83690; 85025

== ENCOUNTER 2017-06-29 08:15 | Emergency (ER) | payer MEDICAID ==
[~2017-06-29] VITALS: Ht 160 cm; Wt 63.5 kg
[~2017-06-29 08:15] MED LIST changes: -OXYC-471 PO
[2017-06-29] MEDS ORDERED: NS IV 1000 ML 1,000 ML IV STA (09:12)
[2017-06-29] MEDS ORDERED: FAMOTIDINE 20MG/2ML IV (PEPCID) IV STA (09:12)
[2017-06-29] MEDS ORDERED: fentaNYL INJECTION 100 MCG/2 ML AMP IVP STA ×2 (09:12→10:35)
[2017-06-29] MEDS ORDERED: IOHEXOL 350 MG/ML 100 ML (OMNIPAQUE 350) VIAL IV ONE (09:15)
[2017-06-29] MEDS ORDERED: NS 250 ML (IVPB) BAG IV ONE (09:15)
--- NOTE | 2017-06-29 09:15 | ED Abdominal Pain ---
General Chief Complaint: Abdominal/GI Problems Stated Complaint: ABD PAIN Nursing Triage Note: C/O R UPPER ABD PAIN. HAS HAD OP LAB AND GALLBLADDER SONO Sepsis Screen: No Definite Risk History of Present Illness Date Seen by Provider: Jun 29, 2017 Time Seen by Provider: 08:58 Initial Comments Here with complaint of right upper abdominal pain that has been going on for the last several days. Had labs and outpatient gallbladder ultrasound done yesterday. Did have a procedure done on the for endometriosis with Dr. Meyer. Denies fever or chills. Denies nausea or vomiting. Did have constipation for a while but that has resolved. Denies dysuria or diarrhea. Denies vomiting. Patient reports that the pain is in the right upper quadrant and is moderate in intensity with aching and burning. Timing/Duration: 3-4 Days Severity/Quality: Moderate, Aching, Cramping Location: RUQ Radiation: No Radiation Activities at Onset: None Modifying Factors: Worsens With Eating, Improves With Resting Associated Symptoms: No Back Pain, No Chest Pain, No Fever/Chills, No Nausea/ Vomiting, No Shortness of Air, No Weakness Allergies and Home Medications Allergies Coded Allergies: codeine (Verified Allergy, Severe, ANAPHYLAXIS, PT HAS HAD HYDROCODONE, ) PER ZENA VANCE, PATIENT STATES THAT SHE HAS HAD LORTAB BEFORE WITHOUT ISSUE azithromycin (Verified Allergy, Unknown, RASH, 01/22/15) ceftriaxone (Verified Allergy, Unknown, 05/15/17) Home Medications Levonorgestrel-Ethin Estradiol 1 Each Tablet, 1 EACH PO UD, (Reported) Ondansetron 8 Mg Tab.rapdis, 8 MG PO Q6H PRN for NAUSEA/VOMITING-1ST LINE Prescribed by: JACQUELINE GARCIA on 05/15/171821 Oxycodone HCl/Acetaminophen 1 Each Tablet, 1-2 TAB PO Q4H PRN for PAIN Prescribed by: DERRICK ROBERTS on 06/20/17 1207 Phenazopyridine HCl 200 Mg Tablet, 1 TAB PO Q8H PRN for PAIN-MODERATE TO SEVERE Prescribed by: JACQUELINE GARCIA on 05/15/171821 Review of Systems Constitutional: see HPI, No chills, No fever EENTM: No Symptoms Reported Respiratory: No Symptoms Reported Cardiovascular: No Symptoms Reported Gastrointestinal: See HPI, Abdominal Pain, Constipated, Denies Diarrhea, Denies Nausea Genitourinary: No Symptoms Reported All Other Systems Reviewed Negative Unless Noted: Yes Past Znxyume-Yaynue-Finhno Hx Patient Social History Alcohol Use: Denies Use Recreational Drug Use: No Smoking Status: Never a Smoker Recent Foreign Travel: No Contact w/Someone Who Travel: No Recent Infectious Disease Expo: No Recent Hopitalizations: No Immunizations Up To Date Tetanus Booster (TDap): Unknown PED Vaccines UTD: Yes Date of Influenza Vaccine: Jan 29, 2015 Seasonal Allergies Seasonal Allergies: No Surgeries History of Surgeries: Yes Surgeries: Adenoidectomy, Appendectomy, Ear Surgery, Tonsillectomy Respiratory History of Respiratory Disorde: No Cardiovascular History of Cardiac Disorders: No Neurological History of Neurological Disord: Yes (Past seizure disorder, LAST SEIZURE APPROX 4-5 YRS AGO) Reproductive System Hx Reproductive Disorders: Yes (CPP) Female Reproductive Disorders: Endometriosis Genitourinary History of Genitourinary Disor: No Gastrointestinal History of Gastrointestinal Di: No Musculoskeletal History of Musculoskeletal Dis: No Endocrine History of Endocrine Disorders: No HEENT History of HEENT Disorders: No Cancer History of Cancer: No Psychosocial History of Psychiatric Problem: No Integumentary History of Skin or Integumenta: No Blood Transfusions History of Blood Disorders: No Adverse Reaction to a Blood Tr: No Reviewed Nursing Assessment Reviewed/Agree w Nursing PMH: Yes Family Medical History Significant Family History: No Pertinent Family Hx Family Medial History: FH: spina bifida Physical Exam Vital Signs VS - Last 72 Hours, by Label 06/29/17 08:15 Temp 98.5 Pulse 82 Resp 18 B/P (MAP) 115/92 (100) Pulse Ox 99 O2 Delivery Room Air Capillary Refill : Less Than 3 Seconds General Appearance: WD/WN, no apparent distress HEENT: PERRL/EOMI, pharynx normal Neck: full range of motion, supple Respiratory: lungs clear, normal breath sounds Cardiovascular: regular rate, rhythm, no murmur Peripheral Pulses: 2+ Dorsalis Pedis (R), 2+ Left Dors-Pedis (L), 2+ Radial Pulses (R), 2+ Radial Pulses (L) Gastrointestinal: soft, No guarding, No rebound, tenderness Extremities: non-tender, normal inspection Back: normal inspection, no CVA tenderness, no vertebral tenderness Neurologic/Psychiatric: alert, oriented x 3 Skin: normal color, warm/dry Progress/Results/Core Measures Results/Orders Lab Results Laboratory Tests Test 06/29/17 09:30 Range/Units White Blood Count 5.8 4.3-11.0 10^3/uL Red Blood Count 4.67 4.35-5.85 10^6/uL Hemoglobin 14.2 11.5-16.0 G/DL Hematocrit 41 35-52 % Mean Corpuscular Volume 87 80-99 FL Mean Corpuscular Hemoglobin 30 25-34 PG Mean Corpuscular Hemoglobin Concent 35 32-36 G/DL Red Cell Distribution Width 12.5 10.0-14.5 % Platelet Count 169 130-400 10^3/uL Mean Platelet Volume 11.2 H 7.4-10.4 FL Neutrophils (%) (Auto) 61 42-75 % Lymphocytes (%) (Auto) 23 12-44 % Monocytes (%) (Auto) 9 0-12 % Eosinophils (%) (Auto) 7 0-10 % Basophils (%) (Auto) 1 0-10 % Neutrophils # (Auto) 3.6 1.8-7.8 X 10^3 Lymphocytes # (Auto) 1.3 1.0-4.0 X 10^3 Monocytes # (Auto) 0.5 0.0-1.0 X 10^3 Eosinophils # (Auto) 0.4 H 0.0-0.3 10^3/uL Basophils # (Auto) 0.1 0.0-0.1 10^3/uL Sodium Level 140 135-145 MMOL/L Potassium Level 4.1 3.6-5.0 MMOL/L Chloride Level 107 98-107 MMOL/L Carbon Dioxide Level 22 21-32 MMOL/L Anion Gap 11 5-14 MMOL/L Blood Urea Nitrogen 9 7-18 MG/DL Creatinine 0.79 0.60-1.30 MG/DL Estimat Glomerular Filtration Rate > 60 BUN/Creatinine Ratio 11 Glucose Level 83 70-105 MG/DL Calcium Level 9.6 8.5-10.1 MG/DL Total Bilirubin 0.5 0.1-1.0 MG/DL Aspartate Amino Transf (AST/SGOT) 23 5-34 U/L Alanine Aminotransferase (ALT/SGPT) 22 0-55 U/L Alkaline Phosphatase 55 40-136 U/L C-Reactive Protein High Sensitivity 2.65 H 0.00-0.50 MG/DL Total Protein 7.7 6.4-8.2 GM/DL Albumin 4.4 3.2-4.5 GM/DL My Orders Orders - PRAVIN DICKENS MD Cbc With Automated Diff (06/29/17 09:12) Comprehensive Metabolic Panel (06/29/17 09:12) Hs C Reactive Protein (06/29/17 09:12) Ct Abdomen/Pelvis W (06/29/17 09:12) Saline Lock/Iv-Start (06/29/17 09:12) Urine Bedside (06/29/17 09:12) Ns Iv 1000 Ml (Sodium Chloride 0.9%) (06/29/17 09:12) Famotidine Injection (Pepcid Injection) (06/29/17 09:12) Fentanyl Injection (Sublimaze Injection (06/29/17 09:12) Iohexol Injection (Omnipaque 350 Mg/Ml 1 (06/29/17 09:15) Ns (Ivpb) (Sodium Chloride 0.9%) (06/29/17 09:15) Contrast Received (Contrast Received) (06/29/17 09:30) Lidocaine 2% Viscous 15 Ml (Xylocaine Vi (06/29/17 10:15) Antacid Suspension (Mylanta Suspension (06/29/17 10:15) Fentanyl Injection (Sublimaze Injection (06/29/17 10:35) Oxycodone/Apap 5/325mg Tablet (Percocet (06/29/17 10:35) Medications Given in ED Current Medications Medications Dose Ordered Sig/Dean Route Start Time Stop Time Status Last Admin Dose Admin Al Hydrox/Mg Hydrox/Simethicone 30 ml ONCE ONCE PO 06/29/17 10:15 06/29/17 10:16 DC 06/29/17 10:22 30 ML Iohexol 100 ml ONCE ONCE IV 06/29/17 09:15 06/29/17 09:23 DC 06/29/17 09:47 100 ML Lidocaine HCl 15 ml ONCE ONCE PO 06/29/17 10:15 06/29/17 10:16 DC 06/29/17 10:22 15 ML Sodium Chloride 250 ml ONCE ONCE IV 06/29/17 09:15 06/29/17 09:23 DC 06/29/17 09:47 80 ML Vital Signs/I&O Vital Sign - Last 12Hours 06/29/17 08:15 Temp 98.5 Pulse 82 Resp 18 B/P (MAP) 115/92 (100) Pulse Ox 99 O2 Delivery Room Air Blood Pressure Mean: 100 Progress Note : Progress Note Seen and evaluated. IV, labs, normal saline 1 L bolus, fentanyl [address] abdomen pelvis ordered. Monitor patient. 1039: CT is negative and labs do not show any significant findings. I did discuss the case with Dr. Meyer. Unlikely that this is anything related to the previous surgery. Patient is also following up with Dr. Guerra and we will continue that. I did repeat fentanyl 50 g IV and gave Percocet 5/325 one tablet by mouth. I did talk to the patient and her mother. She needs follow-up including possible surgical follow-up for upper endoscopy and this was discussed with them and they agree. Dr. Guerra can assist with surgical referral. I will send a copy of the chart to him. Overall safe in doing better at this point. Discharged home with return precautions. Patient verbalize understanding instructions and agreement with plan. Diagnostic Imaging Diagonstic Imaging: CT Plain Films/CT/US/NM/MRI: abdomen, pelvis Comments VIA [facility], [facility]. [place], [place] NAME: JUAN CARLOS HODGE [facility] REC#: [id number] PT STATUS: REG ER : 1995 PHYSICIAN: PRAVIN DICKENS MD ADMIT DATE: 06/29/17/ER Draft Date of Exam:06/29/17 CT ABDOMEN/PELVIS W PROCEDURE: CT abdomen and pelvis with contrast. TECHNIQUE: Multiple contiguous axial images were obtained through the abdomen and pelvis after administration of intravenous contrast. INDICATION: Abdominal pain. FINDINGS: There is mild linear atelectasis or scarring in the visualized right lung base. No pleural fluid was appreciated on the images obtained through the lower chest. There is no evidence of focal hepatic or splenic abnormality. Gallbladder is unremarkable in appearance. No pancreatic or adrenal gland lesion is seen. Kidneys are also unremarkable in appearance and there is no free fluid noted in the abdomen. There is mild pelvic free fluid. Ovaries are prominent with occasional cyst and/or follicles. There has been appendectomy. No organized fluid collection is seen to indicate an abscess. IMPRESSION: Mild pelvic free fluid which may be physiologic in nature. Clinical correlation would be useful. Pelvic inflammatory disease could have similar appearance. Otherwise, there is no CT evidence of acute abnormality in the abdomen or pelvis. Dictated on workstation # [id number] Dict: 06/29/17 0957 Trans: 06/29/17 1008 [id number] Interpreted by: ANGELA ROGERS MD Electronically signed by: Departure Impression Impression: Primary Impression: Right upper quadrant abdominal pain Disposition: HOME, SELF-CARE Condition: Stable Departure-Patient Inst. Decision time for Depature: 11:05 Referrals: CICI GUERRA DO (PCP/Family) Primary Care Physician EMRE GUZMAN MD Patient Instructions: Acute Abdomen (Belly Pain), Adult (DC) Add. Discharge Instructions: All discharge instructions reviewed with patient and/or family. Voiced understanding. Take medications as directed. If you're not taking prescribed pain medicine, you may take Tylenol/acetaminophen 1000 mg every 6 hours as needed for pain. Do not take them with the prescribed pain medicine has both have acetaminophen in them. Follow-up with your Dr. in one to 2 days for recheck and further evaluation. You should consider referral to a surgeon of your choice for evaluation including upper endoscopy (scope). Your doctor may also consider further evaluation with HIDA scan related to the gallbladder. Return for worse pain, fever, vomiting, weakness, breathing problems or other concerns as needed. You should start taking omeprazole 20 mg tablets that he can get over- the-counter. Take this daily for the next 2 weeks. You may repeat a two-week pack 2 more times as needed. You may also take Pepcid or the generic famotidine 20 mg daily for stomach upset as well. You may take MiraLAX or the generic one half to one capful twice daily while taking the pain medicine to prevent constipation. Drink plenty of fluids. Clear liquid diet for the next 24-48 hours and then advance as tolerated to a light diet. Scripts Oxycodone HCl/Acetaminophen (Oxycodone-Acetaminophen 5-325) 1 Each Tablet 1 EACH PO Q6H Y for PAIN, #10 TAB 0 Refills Prov: PRAVIN DICKENS MD 06/29/17 Copy Copies To 1: CICI GUERRA DO Copies To 2: DERRICK MEYER MD, TIMOTHY D MD Jun 29, 2017 09:15
[2017-06-29] MEDS ORDERED: RECEIVED CONTRAST (Hold Metformin) IV SCH (09:30)
[2017-06-29 09:33] LABS: BASOPHILS # (AUTO) 0.1 10^3/uL (0.0-0.1); BASOPHILS % (AUTO) 1 % (0-10); EOSINOPHILS # (AUTO) 0.4 10^3/uL (0.0-0.3); EOSINOPHILS % (AUTO) 7 % (0-10); HEMATOCRIT 41 % (35-52); HEMOGLOBIN 14.2 G/DL (11.5-16.0); LYMPHOCYTES # (AUTO) 1.3 X 10^3 (1.0-4.0); LYMPHOCYTES % (AUTO) 23 % (12-44); MEAN CORPUSCULAR HEMOGLOBIN 30 PG (25-34); MEAN CORPUSCULAR HGB CONC 35 G/DL (32-36); MEAN CORPUSCULAR VOLUME 87 FL (80-99); MEAN PLATELET VOLUME 11.2 FL (7.4-10.4); MONOCYTES # (AUTO) 0.5 X 10^3 (0.0-1.0); MONOCYTES % (AUTO) 9 % (0-12); NEUTROPHILS # (AUTO) 3.6 X 10^3 (1.8-7.8); NEUTROPHILS % (AUTO) 61 % (42-75); PLATELET COUNT 169 10^3/uL (130-400); RED BLOOD COUNT 4.67 10^6/uL (4.35-5.85); RED CELL DISTRIBUTION WIDTH 12.5 % (10.0-14.5); WHITE BLOOD COUNT 5.8 10^3/uL (4.3-11.0)
[2017-06-29 09:55] LABS: ALANINE AMINOTRANSFERASE 22 U/L (0-55); ALBUMIN 4.4 GM/DL (3.2-4.5); ALKALINE PHOSPHATASE 55 U/L (40-136); BILIRUBIN,TOTAL 0.5 MG/DL (0.1-1.0); BUN/CREATININE RATIO 11; CALCIUM 9.6 MG/DL (8.5-10.1); CARBON DIOXIDE 22 MMOL/L (21-32); CHLORIDE 107 MMOL/L (98-107); CREATININE SERUM 0.79 MG/DL (0.60-1.30); GFR ESTIMATED > 60; GLUCOSE 83 MG/DL (70-105); POTASSIUM 4.1 MMOL/L (3.6-5.0); SODIUM 140 MMOL/L (135-145); TOTAL PROTEIN 7.7 GM/DL (6.4-8.2)
--- NOTE | 2017-06-29 10:08 | Diagnostic Imaging Report ---
PROCEDURE: CT abdomen and pelvis with contrast. TECHNIQUE: Multiple contiguous axial images were obtained through the abdomen and pelvis after administration of intravenous contrast. INDICATION: Abdominal pain. FINDINGS: There is mild linear atelectasis or scarring in the visualized right lung base. No pleural fluid was appreciated on the images obtained through the lower chest. There is no evidence of focal hepatic or splenic abnormality. Gallbladder is unremarkable in appearance. No pancreatic or adrenal gland lesion is seen. Kidneys are also unremarkable in appearance and there is no free fluid noted in the abdomen. There is mild pelvic free fluid. Ovaries are prominent with occasional cyst and/or follicles. There has been appendectomy. No organized fluid collection is seen to indicate an abscess. IMPRESSION: Mild pelvic free fluid which may be physiologic in nature. Clinical correlation would be useful. Pelvic inflammatory disease could have similar appearance. Otherwise, there is no CT evidence of acute abnormality in the abdomen or pelvis. Dictated by: Dictated on workstation # [id number]
[2017-06-29] MEDS ORDERED: ANTACID SUSP 30 ML UDC (MYLANTA) PO ONE (10:15)
[2017-06-29] MEDS ORDERED: LIDOCAINE 2% VISCOUS 15 ML UDC PO ONE (10:15)
[2017-06-29] MEDS ORDERED: oxyCODONE/APAP 5/325MG (PERCOCET 5) TABLET PO STA (10:35)
[2017-06-29] MEDS ORDERED: OXYC-471 PO (11:07)
[2017-06-29 11:10] VITALS: BP 130/90
[2017-06-29] MEDS ORDERED: ONDANSETRON 4 MG/2 ML (SDV) Z0FRAN IVP ONE (11:15)
== END 2017-06-29 11:10 | disposition home or self-care (01) ==
LOC: EDUNIT# 08:15 → ER 08:17
DX: R10.11 Right upper quadrant pain (principal); G40.909 Epilepsy, unspecified, not intractable, without status epilepticus; Z88.5 Allergy status to narcotic agent; Z88.1 Allergy status to other antibiotic agents; Z90.49 Acquired absence of other specified parts of digestive tract; Z90.89 Acquired absence of other organs
CPT/HCPCS: 36415; 74177; 80053; 84703; 85025; 86141; 96361; 96374; 96375; 96376

== ENCOUNTER → 2017-06-29 | Outpatient (CLI) | payer MEDICAID | LOC: RAD 07:22 | PROVIDERS: ATTEND Obstetrics & Gynecology | DX: R10.11 Right upper quadrant pain (principal) ==

== ENCOUNTER → 2017-07-04 | Outpatient (CLI) | payer MEDICAID ==
[~2017-07-04] MED LIST changes: +CATHETER FLUSH 10 ML SYR IV PRN; +OXYC-471 PO
--- NOTE | 2017-07-04 12:23 | Diagnostic Imaging Report ---
INDICATION: Right upper quadrant pain. TECHNIQUE: The patient was administered 4.8 mCi of technetium 99m Choletec and imaging over the abdomen was performed. At 60 minutes, the patient was given one can of Ensure to drink and a gallbladder ejection fraction was calculated. FINDINGS: There is homogeneous uptake of activity by the liver with prompt excretion of activity into the common duct and gallbladder. There is normal passage of activity into the small bowel. Gallbladder ejection fraction is normal at 35%. IMPRESSION: Normal HIDA scan and gallbladder ejection fraction. Dictated by: Dictated on workstation # [id number]
== END ==
LOC: CARD 09:58
PROVIDERS: ATTEND Family Medicine
DX: R10.11 Right upper quadrant pain (principal)
CPT/HCPCS: 78227